=== PATIENT | male | born 1970 | race Caucasian/White ===

== ENCOUNTER 2020-01-21 14:27 | Emergency (ER) | payer OTHER, SELFPAY ==
--- NOTE | ~2020-01-21 | XR_ITS ---
EXAMINATION: XR chest 2V EXAM DATE: 01/21/2020 15:10 INDICATION: Cough, left lower diminished breath sounds. TECHNIQUE: Frontal and lateral projections of the chest obtained and reviewed. Comparison is made to prior examination from 04/10/2014. FINDINGS: There is patchy left basilar posterior subsegmental airspace disease, atelectasis and/or p neumonia. This is new compared to prior study. The lungs are otherwise clear. There are no pleural e ffusions. The cardiomediastinal silhouette is within normal limits. There is no pneumothorax suspec luis. The bones and soft tissues are unremarkable. IMPRESSION: Patchy left basilar segmental atelectasis and/or pneumonia. Reviewed, dictated and finalized at location A.
[2020-01-21 14:34] VITALS: BP 160/73; PULSE 92; RESP 20; TEMP 36.8; O2SAT 94
--- NOTE | 2020-01-21 15:04 | ED.URI ---
HPI - URI/Sore Throat General Chief Complaint: Upper Respiratory Infection Stated Complaint: FEVER Time Seen by Provider: 01/21/20 14:56 Source: patient and RN notes reviewed Mode of arrival: ambulatory Limitations: no limitations History of Present Illness HPI Narrative: The patient presents today complaining of nausea, vomiting, body aches, mild cough, intermittent shortness of breath. Denies congestion, rhinorrhea, sore throat, fever. Patient smokes 1 pack/day x 40 years. He has not tried any medication at home prior to arrival. MD elicited complaint: other (Nausea, vomiting, cough) Related Data Allergies Allergy/AdvReac Type Severity Reaction Status Date / Time No Known Allergies Allergy Unknown Verified 01/21/20 14:40 Review of Systems Review of Systems: Narrative: CONSTITUTIONAL: Denies body aches, fever, chills, or sweats. Body aches, fatigue EYES: Denies visual changes, redness, or discharge. ENT: Denies rhinorrhea, congestion, sore throat, or otalgia. CARDIOVASCULAR: Denies chest pain, palpitations, or edema. RESPIRATORY: + Cough. Intermittent shortness of breath GASTROINTESTINAL: Denies abdominal pain, or diarrhea.+ Nausea and vomiting GENITOURINARY: Denies dysuria or hematuria. SKIN: Denies rash, itching, or wounds. MUSCULOSKELETAL: Denies back pain, joint pain, or myalgia. NEUROLOGIC: Denies headache, numbness, tingling, or weakness. PSYCH: Denies depression or anxiety. PMFSH Comments At time of signature, I have reviewed and agree with nursing past medical, surgical, social and family history unless otherwise noted. Please see nursing chart for further information. There is no relevant family history pertinent to the presenting complaint Exam Narrative: Exam Narrative: GENERAL: Well-appearing, well-nourished, and in no acute distress. HEAD: Normocephalic, atraumatic. EYES: EOMI. No redness or drainage. Conjunctivae normal. ENT: Mucous membranes pink and moist. Nares clear. No rhinorrhea. TMs normal bilaterally. Throat normal. Uvula midline. NECK: Normal AROM. Supple. No lymphadenopathy. CHEST: No respiratory distress. Diminished with crackles in the left lower lobe. Wheezing in the right upper lobe. HEART: Regular rate and rhythm. No murmur appreciated. Normal peripheral pulses. EXTREMITIES: Normal range of motion. No edema. SKIN: Warm, dry, no rash. NEURO: No focal deficits. Alert and oriented x3. Gait steady. PSYCH: Normal affect. No signs of depression or anxiety. Course Vital Signs Vital signs: Vital Signs Temperature 98.2 F 01/21/20 14:34 Pulse Rate 92 01/21/20 14:34 Respiratory Rate 20 01/21/20 14:34 Blood Pressure 160/73 H 01/21/20 14:34 Pulse Oximetry 94 01/21/20 14:34 Temperature 98.2 F 01/21/20 14:34 Pulse Rate 92 01/21/20 14:34 Respiratory Rate 20 01/21/20 14:34 Blood Pressure 160/73 H 01/21/20 14:34 Pulse Oximetry 94 01/21/20 14:34 Reviewed. Pt has been instructed to follow up with his PCP regarding his elevated blood pressure today. MDM - URI/Sore Throat Differential Diagnosis Differential diagnosis: Likely upper respiratory infection, viral infection, bronchitis, influenza and other (Pneumonia) Lab Data Attestation: I reviewed the patient's lab results. Labs: Influenza A Screen Positive Reference Range: Negative Influenza B Screen Negative Reference Range: Negative Imaging Data Radiologist's impression: ITS Impressions Chest X-Ray 01/21/20 15:12 IMPRESSION: Patchy left basilar segmental atelectasis and/or pneumonia. Critical Care Time Critical Care Time Critical Care Time: No Discharge Plan Discharge Clinical Impression: Influenza A Pneumonia Qualifiers: Pneumonia type: due to unspecified organism Laterality: left Lung location: lower lobe of lung Qualified Code(s): J18.9 - Pneumonia, unspecified organism Patient Disposition: Home, Self-Care Condition
[2020-01-21] MEDS: IPRATROPIUM BR 0.02% INH SOLN 0.5 MG/2.5 ML VIAL INHALATION (15:11)
[2020-01-21] MEDS: ALBUTEROL SULFATE NEB 2.5 MG/3 ML INH INHALATION (15:12)
--- NOTE | 2020-01-21 15:29 | PC.NURSE ---
aerosol tx. tolerated well p.o. 92 %
== END 2020-01-21 15:46 | disposition home or self-care (01) ==
PROVIDERS: Emergency Provider Nurse Practitioner
DX: J10.1 Influenza due to other identified influenza virus with other respiratory manifestations (principal); J18.9 Pneumonia, unspecified organism
CPT/HCPCS: 71046; 87804; 99203; G0463

== ENCOUNTER 2020-12-01 12:17 | Emergency (ER) | payer OTHER, SELFPAY ==
[2020-12-01 12:28] VITALS: BP 176/83; PULSE 71; RESP 18; TEMP 37.2; O2SAT 99
--- NOTE | 2020-12-01 13:10 | PC.NURSE ---
patient sitting in chair in room. alert. oriented. waiting for further orders from provider.
--- NOTE | 2020-12-01 13:34 | ED.GENADULT ---
HPI - General Adult General Chief complaint: Extremity Injury, Lower Stated complaint: R foot problem Time Seen by Provider: 12/01/20 12:32 Source: patient Mode of arrival: ambulatory Limitations: no limitations History of Present Illness HPI narrative: Patient presents for evaluation of his fourth and fifth right toes stating that 2 years ago he stubbed them and since he has noticed intermittent tingling sensations and feels that his balance is off. Patient states that he has been referred to physical therapy for a while and now has been instructed to do physical therapy at home, but he is tired of dealing with it. Patient states that he has been discussed with his primary care however he feels that since he has been back to work he is being encouraged to walk more which makes him more noticeable that his gait is not even. Patient denies any recent trauma or injuries to the extremities. Related Data Allergies Allergy/AdvReac Type Severity Reaction Status Date / Time No Known Allergies Allergy Unknown Verified 02/14/20 06:52 Review of Systems Review of Systems: Narrative: CONSTITUTIONAL: Denies fever, chills, or sweats. EYES: Denies visual changes, redness, or discharge. ENT: Denies rhinorrhea, congestion, sore throat, or otalgia. CARDIOVASCULAR: Denies chest pain, palpitations, or edema. RESPIRATORY: Denies cough or dyspnea. GASTROINTESTINAL: Denies abdominal pain, nausea, vomiting, or diarrhea. GENITOURINARY: Denies dysuria or hematuria. SKIN: Denies rash or itching. MUSCULOSKELETAL: Tingling to right fourth and fifth digit denies back pain, joint pain, or myalgia. NEUROLOGIC: Denies headache, numbness, dizziness, or weakness. PSYCHIATRIC: Denies anxiety or depression. Exam Narrative: Exam Narrative: GENERAL: Well-appearing, well-nourished, and in no acute distress. HEAD: Normocephalic, atraumatic. EYES: PERRLA and EOMI. EXTREMITIES: Normal range of motion. No edema. No ecchymosis or erythema noted to right fourth or fifth digits. Patient states feet are dry and there is onychomycosis noted to nails. There is no signs of deformity or acute injury. Patient is able to weight-bear on the right foot. Patient is able to plantar and dorsiflex. SKIN: Warm, dry, no rash. NEURO: No focal deficits. Alert and oriented x3. Patient able to weight-bear and ambulate. PSYCH: Normal mood and affect. Course Vital Signs Vital signs: Vital Signs Temperature 98.9 F 12/01/20 12:28 Pulse Rate 71 12/01/20 12:28 Respiratory Rate 18 12/01/20 12:28 Blood Pressure 176/83 H 12/01/20 12:28 Pulse Oximetry 99 12/01/20 12:28 Temperature 98.9 F 12/01/20 12:28 Pulse Rate 71 12/01/20 12:28 Respiratory Rate 18 12/01/20 12:28 Blood Pressure 176/83 H 12/01/20 12:28 Pulse Oximetry 99 12/01/20 12:28 Medical Decision Making MDM Narrative Medical decision making narrative: Discussed with patient that if he feels that he has any weight gain that he should talk to his primary care about physical therapy options. He is also concerned about tingling sensations perhaps like a discussed nerve conduction studies. Patient does not have any acute injuries that can be worked up in the emergency department. Patient is discharged home to follow-up with his primary care. Patient denies any systemic or other symptoms accompanying the intermittent tingling to his fourth and fifth metatarsals. Differential Diagnosis Differential Diagnosis: Fracture, sprain, strain Vital Signs Vital Signs: Vital Signs Temperature 98.9 F 12/01/20 12:28 Pulse Rate 71 12/01/20 12:28 Respiratory Rate 18 12/01/20 12:28 Blood Pressure 176/83 H 12/01/20 12:28 Pulse Oximetry 99 12/01/20 12:28 Temperature 98.9 F 12/01/20 12:28 Pulse Rate 71 12/01/20 12:28 Respiratory Rate 18 12/01/20 12:28 Blood Pressure 176/83 H 12/01/20 12:28 Pulse Oximetry 99 12/01/20 12:28 Discharge Plan Discharge Clinical Impression: Toe anom
== END 2020-12-01 13:51 | disposition home or self-care (01) ==
PROVIDERS: Emergency Provider Emergency Medicine; PCP Internal Medicine
DX: R20.2 Paresthesia of skin (principal)
CPT/HCPCS: 99282

== ENCOUNTER 2021-04-29 09:51 | Outpatient (CLI) | payer OTHER, SELFPAY ==
--- NOTE | 2021-04-29 11:00 | NEURO_ITS ---
Impression: # Known diabetic complains of right foot numbness and inability to dorsiflex toes. # Neuropathy involving right lower extremity; motor and sensory nerves. # Abnormal needle/EMG exam. Nerve Conduction Studies Anti Sensory Summary Table Stim Site NR Peak (ms) P-T Amp (?V) Site1 Site2 Delta-P (ms) Dist (cm) Ethan (m/s) Right Sup Fibular Anti Sensory (Ant Lat Mall) NO RESPONSE 14 cm NR 14 cm Ant Lat Mall 16.0 Right Sural Anti Sensory (Lat Mall) Calf 4.7 11.0 Calf Lat Mall 4.7 16.0 34 Motor Summary Table Stim Site NR Onset (ms) O-P Amp (mV) Site1 Site2 Delta-0 (ms) Dist (cm) Ethan (m/s) Right Peroneal Motor (Vastus Med) Ankle 4.8 0.7 Popit Ankle 14.1 40.0 28 Popit 18.9 0.5 Right Tibial Motor (Abd Prince Brev) Ankle 5.2 2.4 Knee Ankle 13.9 44.0 32 Knee 19.1 0.5 F Wave Studies NR F-Lat (ms) L-R F-Lat (ms) Right Peroneal (Mrkrs) (EDB) NO RESPONSE NR Right Tibial (Mrkrs) (Abd Hallucis) 58.77 EMG Side Muscle Nerve Root Ins Act Fibs Amp Dur Recrt Comment Right AntTibialis Dp Br Fibular L4-5 Nml Nml Nml Nml Reduced Right Gastroc Tibial S1-2 Nml Nml Nml Nml Reduced Right Fibularis Long Sup Br Fibular L5-S1 Nml Nml Nml Nml Reduced Right Flex Dig Long Tibial L5-S2 Nml Nml Nml Nml Reduced Right Ext Dig Brev Dp Br Fibular L5, S1 Nml Nml Decr >12ms Reduced MTDD
== END 2021-04-29 09:52 | disposition home or self-care (01) ==
LOC: ANHNEURO 09:52
PROVIDERS: PCP Internal Medicine; Visit Provider Internal Medicine
DX: G57.91 Unspecified mononeuropathy of right lower limb (principal)
CPT/HCPCS: 95886; 95908

== ENCOUNTER 2024-05-26 15:56 | Emergency (ER) | payer OTHER, SELFPAY ==
--- NOTE | ~2024-05-26 | CT_ITS ---
CT head without contrast Indication: Altered mental status Technique: Serial scans were obtained through the brain without the administration of contrast. Dose reduction technique was used on this scan by utilizing automated exposure control and iterative recon struction technique. The dose-length product (DLP) was 756.67 mGy-cm. Findings: There is no evidence of intracranial hemorrhage, mass lesion, or acute infarct. The ventri cles and subarachnoid spaces are unremarkable. Low attenuation regions are seen within the periventr icular white matter bilaterally, likely representing changes from chronic microvascular ischemic dise ase. There is no evidence of edema, mass effect or midline shift. The visualized paranasal sinuses and mastoid air cells are clear. Impression: No intracranial hemorrhage, mass, or acute infarct. Mild chronic white matter changes, as above. Reviewed, dictated and finalized at location . Impression: No intracranial hemorrhage, mass, or acute infarct. Mild chronic white matter changes, as above.
--- NOTE | ~2024-05-26 | XR_ITS ---
Portable chest x-ray Comparison: 01/21/2020 Clinical History: Altered mental status Findings: Lungs are clear, without focal consolidation or pleural effusion. Cardiomediastinal silho uette is stable. Bones and soft tissues are unremarkable. Impression: Clear lungs. Reviewed, dictated and finalized at location . Impression: Clear lungs.
[2024-05-26 15:57] VITALS: BP 133/80; PULSE 76; RESP 17; TEMP 36.7; O2SAT 98
--- NOTE | 2024-05-26 16:12 | ECG_ITS ---
Test Date: 2024-05-26 16:44:49 Measurements Intervals [place] Rate: 70 P: -2 MS: 192 QRS: 3 QRSD: 118 T: 33 QT: 405 QTc: 439 Interpretive Statements SINUS RHYTHM INTRAVENTRICULAR CONDUCTION DELAY BASELINE ARTIFACT- II, III, AVR, AVL, AVF, V1-V6 BORDERLINE ECG No previous ECG available for comparison Electronically Signed On 05-27-2024 08:22:44 CDT by Nelson Carpenter D.O.
--- NOTE | 2024-05-26 16:13 | ED.AMS ---
HPI - Altered Mental Status General Chief Complaint: Altered Mental Status Stated Complaint: slightly unresponsive Time Seen by Provider: 05/26/24 16:06 History of Present Illness HPI narrative: 54-year-old male presents to the emergency department via EMS for altered mental status. Patient was found by a friend in his vehicle unresponsive. Apparently the patient is sitting in his car with the door open and his feet sticking out of the car for 2 hours. He passed out while outside. EMS was contacted upon their arrival patient's temperature was 104? and his glucose was 500. He has a history of CVA, hypertension and DM. Patient was cooled by EMS his temperature was 100? glucose was 309 after fluids. He was given Narcan because he admitted to EMS that he had these final a few days ago, however the Narcan did not improve his mental status. On arrival to the ED his temp was 98.1? and the patient was alert to person and place. He denies use of alcohol or drugs. Denies any complaints at this time including chest pain or shortness of breath, vision changes or focal numbness or weakness. Related Data Allergies Allergy/AdvReac Type Severity Reaction Status Date / Time No Known Allergies Allergy Unknown Verified 05/26/24 16:12 Review of Systems Review of Systems: All systems reviewed & are unremarkable except as noted in HPI and below Exam Narrative: GENERAL: Well-appearing, well-nourished, and in no acute distress. poor hygiene. GCS 15 HEAD: Normocephalic, atraumatic. EYES: PERRLA and EOMI. ENT: Nares clear, no rhinorrhea or epistaxis. Mucous membranes dry NECK: Supple. CHEST: Clear to auscultation. No respiratory distress. HEART: Regular rate and rhythm. No murmur heard. Normal peripheral pulses. ABDOMEN: Soft, nontender, nondistended, normal active bowel sounds. EXTREMITIES: Normal range of motion. No edema. SKIN: Warm, dry, no rash. NEURO: No focal deficits. Alert and oriented x2 . Moving all extremities spontaneously Course Vital Signs Vital signs: Vital Signs Temperature 98.1 F 05/26/24 15:57 Pulse Rate 76 05/26/24 15:57 Respiratory Rate 17 05/26/24 15:57 Blood Pressure 133/80 05/26/24 15:57 Pulse Oximetry 98 05/26/24 15:57 Oxygen Delivery Nasal Cannula 05/26/24 15:57 Oxygen Flow Rate 2 05/26/24 15:57 Temperature 98.1 F 05/26/24 18:35 Pulse Rate 86 05/26/24 20:01 Respiratory Rate 28 H 05/26/24 20:01 Blood Pressure 136/109 H 05/26/24 20:01 Pulse Oximetry 100 05/26/24 20:01 Oxygen Delivery Nasal Cannula 05/26/24 17:10 Oxygen Flow Rate 2 05/26/24 17:10 MDM - Altered Mental Status MDM Narrative Medical decision making narrative: 54-year-old male with a history of CVA, DM, hypertension presents to the emergency department via EMS for altered mental status after being found sitting in his vehicle outside. The vehicle was off. Patient was found to be febrile at 104 by EMS, glucose was 500. He was given IV fluids and cold. Upon arrival to ED he is A&O x2, moving all extremities. No evidence of trauma. GCS 15. Airway protocted. He has no complaints. His vitals are stable, temp here is 98.1. Will obtain AMS workup, symptoms consistent with heat stroke. CBC without leukocytosis. Hemoglobin low at 12.4, normal MCV, no prior for comparison. Chemistries with a sodium of 131 calcium of 8.1. CK 243. TSH normal. Bicarb normal, no anion gap. Beta hydroxybutyrate is normal at 0.04. UA with glucosuria and elevated specific gravity, no UTI. UDS and ETOH are unremarkable. COVID and flu are negative. Chest x-ray shows no acute cardiopulmonary abnormality. Lactic acid normal at 1.5. Lactic acid normal 1.5. EKG with poor baseline, sinus rhythm, normal SC interval, normal QRS duration, normal QTC, no ischemic changes. CT brain shows no intracranial hemorrhage, mass or acute infarct. Workup discussed with patient and family at bedside. He received 3 L of IV fluid
[2024-05-26 16:14] LABS: Glucose Point of Care 444 mg/dl (65-105)
[2024-05-26 16:41] LABS: Alveolar/Arterial O2 Gradient 25.9 mmHg; Fractional Inspired Oxygen 24 %; HCO3 ABG 21.3 mEq/l (22.0-26.0); Oxygen Content ABG 17.9 %vol (16.0-22.0); Oxygen Saturation ABG 97.2 % (95.0-100.0); Oxyhemoglobin 96.7 % THb (90.0-100.0); PCO2 ABG 39.7 mmHg (35.0-45.0); PO2 FiO2 Ratio Arterial Blood 4.08 %; Total Hemoglobin 13.1 g/dL (12.0-18.0); pH ABG 7.348 (7.350-7.450)
[2024-05-26 16:45] LABS: Modified Allen's Test Pass; Site Drawn RIGHT RADIAL
[2024-05-26 16:46] LABS: Device NASAL CANNULA
[2024-05-26 17:04] LABS: Basophils Absolute Auto 0.1 K/mm3 (0.0-0.1); Basophils Percent Auto 0.6 % (0.2-1.2); Eosinophils Absolute Auto 0.1 K/mm3 (0-0.3); Eosinophils Percent Auto 0.8 % (0-4.4); Hematocrit 36.1 % (42.0-52.0); Hemoglobin 12.4 g/dL (14.0-18.0); Immature Granulocyte Absolute 0.04 K/mm3 (0.00-0.031); Immature Granulocyte Percent A 0.5 % (0-0.5); Lymphocytes Absolute Auto 1.07 K/mm3 (0.9-3.2); Lymphocytes Percent Auto 12.4 % (18.3-44.2); Mean Corpuscular HGB Conc 34.3 g/dl (32-36); Mean Corpuscular Hemoglobin 29.1 pg (26-34); Mean Corpuscular Volume 84.7 fl (80-100); Mean Platelet Volume 9.6 fl (7.4-10.4); Monocytes Absolute Auto 0.5 K/mm3 (0.1-0.6); Monocytes Percent Auto 5.3 % (2.6-8.5); Neutrophils Percent Auto 80.4 % (45.5-73.1); Platelet Count Result 233 k/mm3 (150-375); Red Blood Count 4.26 M/mm3 (4.6-6.20); Red Cell Distribution Width 12.3 % (11.5-14.5); White Blood Count 8.6 K/mm3 (4.5-10.0)
[2024-05-26 17:10] VITALS: O2SAT 98
[2024-05-26 17:15] LABS: Alanine Aminotransferase 12 U/L (6-50); Albumin Level 3.8 g/dL (3.5-5.1); Alkaline Phosphatase 103 U/L (38-126); Anion Gap 9 mmol/L (4-12); Aspartate Amino Transferase 19 U/L (17-59); Bilirubin,Total 0.4 mg/dL (0.2-1.3); Blood Urea Nitrogen 11 mg/dL (9-20); Calcium 8.1 mg/dL (8.4-10.2); Carbon Dioxide 24 mmol/L (22-30); Chloride 98 mmol/L (98-107); Creatine Kinase 243 U/L (55-170); Estimated CRCL calculation 130 ml/min; Estimated Glomerular Filt Rate > 60; Glucose 416 mg/dL (65-110); INR 1.2; Potassium 4.4 mmol/L (3.4-5.0); Sodium 131 mmol/L (137-145)
[2024-05-26 17:16] LABS: Lactic Acid Reflex 2.1 mmol/L (0.7-2.0); Partial Thromboplastin Time 29.8 Seconds (22.3-36.8)
[2024-05-26 17:17] LABS: Acetaminophen < 10 ug/mL (10-30); Ammonia 11 umol/L (9-30); Ethanol < 10 mg/dL (<10); Salicylate < 1.0 mg/dL (2-20)
[2024-05-26 17:27] LABS: Troponin I < 0.012 ng/mL (0.000-0.034)
[2024-05-26 17:46] LABS: Thyroid Stimulating Hormone 0.828 uIU/mL (0.465-4.680)
[2024-05-26 17:48] LABS: Beta-Hydroxybutyrate/Acetoacetate 0.04 mmol/L (0.02-0.27)
[2024-05-26] MEDS: SODIUM CHLORIDE 0.9% IV 1,000 ML 999 ML IV CONT ×3 (18:09→20:15)
[2024-05-26 18:14] LABS: Influenza A QL RT-PCR Negative (Negative); Influenza B QL RT-PCR Negative (Negative); SARS-CoV-2 RNA PCR Negative (Negative)
[2024-05-26 18:23] VITALS: PULSE 62; RESP 13; O2SAT 100
[2024-05-26 18:35] VITALS: BP 109/63; PULSE 63; RESP 16; TEMP 36.7; O2SAT 99
[2024-05-26 20:01] VITALS: BP 136/109; PULSE 86; RESP 28; O2SAT 100
[2024-05-26 20:02] LABS: Reflex Lactic Acid Yes or No Add Lactic
[2024-05-26 20:26] LABS: Appearance Urine Clear (Clear); Bilirubin Urine Negative (Negative); Blood Urine Negative (Negative); Color Urine Yellow (Yellow); Glucose Urine UA 3+ mg/dL (Negative); Ketones Urine Negative (Negative); Leukocyte Esterase Ur Negative LEU/UL (Negative); Nitrate Urine Negative (Negative); Protein Urine Negative (Negative); Specific Grav Ur 1.039 (1.001-1.035); Urobilinogen Urine 0.2 mg/dL (<2.0); pH Urine 5.5 (5.0-9.0)
[2024-05-26 20:42] LABS: Lactic Acid 1.5 mmol/L (0.7-2.0)
[2024-05-26 20:43] LABS: Amphetamine Screen Urine Negative (Negative); Barbiturate Screen Urine Negative (Negative); Benzodiazepines Screen Urine Negative (Negative); Cannabinoid Screen Urine Negative (Negative); Cocaine Screen Urine Negative (Negative); Methadone Screen Urine Negative (Negative); Opiate Screen Urine Negative (Negative); Phencyclidine Screen Urine Negative (Negative)
[2024-05-26 20:52] LABS: Add Urine Microscopic? NO
== END 2024-05-26 21:45 | disposition home or self-care (01) ==
PROVIDERS: Emergency Provider Physician Assistant; PCP Internal Medicine
DX: R41.82 Altered mental status, unspecified (principal); E86.0 Dehydration; Z11.52 Encounter for screening for COVID-19; I10 Essential (primary) hypertension; E11.9 Type 2 diabetes mellitus without complications; Z86.73 Personal history of transient ischemic attack (TIA), and cerebral infarction without residual deficits
CPT/HCPCS: 36415; 36600; 70450; 71045; 80053; 80307; 81003; 82010; 82140; 82550; 82805; 82948; 83605; 84443; 84484; 85025; 85610; 85730; 87636; 93005; 96360; 96361; 99284; J7030

== ENCOUNTER 2024-07-31 10:04 | Emergency (ER) | payer MEDICARE, MEDICAID, SELFPAY ==
[2024-07-31] VITALS (7 sets, daily range): BP systolic 136–163; BP diastolic 87–99; PULSE 87–110; RESP 14–20; TEMP 36.6; O2SAT 97–100
--- NOTE | ~2024-07-31 | XR_ITS ---
EXAMINATION: XR chest 2V DATE: 07/31/2024 10:37 INDICATION: Palpitations. Chest pain. TECHNIQUE: Frontal and lateral views of the chest were obtained. COMPARISON: Chest single view 05/26/2024 FINDINGS: There is no pneumonia, pleural effusion, or pneumothorax. The heart size is normal. There i s an old healed right rib fracture. IMPRESSION: 1. No acute cardiopulmonary disease. Reviewed, dictated and finalized at location A.
--- NOTE | 2024-07-31 10:11 | ECG_ITS ---
Test Date: 2024-07-31 10:08:57 Measurements Intervals [place] Rate: 109 P: 21 WA: 170 QRS: 8 QRSD: 97 T: 19 QT: 355 QTc: 478 Interpretive Statements SINUS TACHYCARDIA DELAYED PRECORDIAL R/S TRANSITION BASELINE ARTIFACT- I, III, AVL, AVF, V2 ABNORMAL ECG Compared to ECG 05/26/2024 16:44:49 HEART RATE HAS INCREASED Electronically Signed On 07-31-2024 10:21:55 CDT by Nelson Carpenter D.O.
[2024-07-31 10:25] LABS: Basophils Percent Auto 0.5 % (0.2-1.2); Eosinophils Percent Auto 0.5 % (0-4.4); Hematocrit 39.5 % (42.0-52.0); Hemoglobin 13.6 g/dL (14.0-18.0); Immature Granulocyte Absolute 0.02 K/mm3 (0.00-0.031); Immature Granulocyte Percent A 0.3 % (0-0.5); Lymphocytes Absolute Auto 1.13 K/mm3 (0.9-3.2); Mean Corpuscular HGB Conc 34.4 g/dl (32-36); Mean Corpuscular Hemoglobin 28.9 pg (26-34); Mean Platelet Volume 9.2 fl (7.4-10.4); Monocytes Absolute Auto 0.4 K/mm3 (0.1-0.6); Monocytes Percent Auto 5.3 % (2.6-8.5); Neutrophils Absolute Auto 5.9 K/mm3 (1.3-6.7); Neutrophils Percent Auto 78.4 % (45.5-73.1); Platelet Count Result 262 k/mm3 (150-375); Red Cell Distribution Width 12.6 % (11.5-14.5); White Blood Count 7.5 K/mm3 (4.5-10.0)
[2024-07-31 10:36] LABS: INR 1.2; Partial Thromboplastin Time 27.7 Seconds (22.3-36.8); Prothrombin Time 15.1 Seconds (11.1-14.7)
[2024-07-31 10:37] LABS: Alanine Aminotransferase 13 U/L (6-50); Albumin Level 4.2 g/dL (3.5-5.1); Alkaline Phosphatase 130 U/L (38-126); Anion Gap 13 mmol/L (4-12); Aspartate Amino Transferase 21 U/L (17-59); Bilirubin,Total 0.9 mg/dL (0.2-1.3); Blood Urea Nitrogen 12 mg/dL (9-20); Calcium 8.6 mg/dL (8.4-10.2); Carbon Dioxide 22 mmol/L (22-30); Chloride 97 mmol/L (98-107); Estimated CRCL calculation 67 ml/min; Estimated Glomerular Filt Rate > 60; Glucose 411 mg/dL (65-110); Sodium 132 mmol/L (137-145)
[2024-07-31 10:49] LABS: NT Pro B Type Natriuretic Pept 333 pg/mL (19.9-100); Troponin I < 0.012 ng/mL (0.000-0.034)
--- NOTE | 2024-07-31 11:04 | ED.ARRPALP ---
HPI - Arrhythmia/Palpitations General Chief Complaint: Arrhythmia/Palpitations Stated Complaint: found down on sidewalk Time Seen by Provider: 07/31/24 10:05 History of Present Illness HPI narrative: Patient is a 54-year-old male who presents ER after being found down on inside wrong. Patient reports that it him doing some work in began feeling weak and lightheaded. EMS arrived and patient was in supraventricular tachycardia. They gave him adenosine in his heart rate came down. Patient is initially hypertensive but blood pressures normalized since his heart rate has improved. He denies chest pain. Reports he did feel his heart was racing. He did not take his morning medications. No fevers or chills or sweats. No history of arrhythmia. Related Data Allergies Allergy/AdvReac Type Severity Reaction Status Date / Time No Known Allergies Allergy Unknown Verified 05/26/24 16:12 Review of Systems Review of Systems: All systems reviewed & are unremarkable except as noted in HPI and below Constitutional: Constitutional: Reports no additional constitutional complaints ENT: Reports system reviewed and no additional complaints, except as documented Cardiovascular: Cardiovascular: Denies chest pain, Reports rapid heart rate and Denies radiating jaw, neck or arm pain Respiratory: Respiratory: Reports no additional respiratory complaints Gastrointestinal: Gastrointestinal: Reports no additional gastrointestinal complaints Neurologic: Reports system reviewed and no additional complaints, except as documented PMFSH Past Medical History Medical History (Updated 07/31/24 @ 13:06 by Alex Marino MD) Diabetes Hypertension Surgical History Surgical History (Updated 07/31/24 @ 13:03 by Alex Marino MD) No pertinent past surgical history Exam Narrative: GENERAL: Well-appearing, well-nourished, and in no acute distress. HEAD: Normocephalic, atraumatic. ENT: Mucous membranes moist. NECK: Supple. CHEST: Clear to auscultation. No respiratory distress. HEART: Tachycardic and regular. Normal peripheral pulses. ABDOMEN: Soft, nontender, nondistended. EXTREMITIES: Normal range of motion. No edema. SKIN: Warm, dry, no rash. NEURO: Alert and oriented x3. PSYCH: Normal mood and affect. Course Course Emergency Course: No additional arrhythmia since EMS converted patient. Discussed with Cardiology. Started on Lopressor 25 mg b.i.d. and f/u outpt. Patient reports not length medications day which would explain his elevated blood sugar. He has received 1 L IV fluid. Discharge home. Vital Signs Vital signs: Vital Signs Temperature 98 F 07/31/24 10:04 Pulse Rate 110 H 07/31/24 10:04 Respiratory Rate 14 07/31/24 10:04 Blood Pressure 136/87 07/31/24 10:04 Pulse Oximetry 100 07/31/24 10:04 Oxygen Delivery Room Air 07/31/24 10:04 Temperature 98 F 07/31/24 10:04 Pulse Rate 95 07/31/24 12:29 Respiratory Rate 17 07/31/24 12:29 Blood Pressure 150/99 H 07/31/24 12:29 Pulse Oximetry 100 07/31/24 12:29 Oxygen Delivery Room Air 07/31/24 10:04 MDM - Arrhythmia/Palpitations Lab Data 07/31/24 10:19 07/31/24 10:19 Labs: Lab Results 07/31/24 Range/Units 10:19 WBC 7.5 (4.5-10.0) K/mm3 RBC 4.70 (4.6-6.20) M/mm3 Hgb 13.6 L (14.0-18.0) g/dL Hct 39.5 L (42.0-52.0) % MCV 84.0 (80-100) fl MCH 28.9 (26-34) pg MCHC 34.4 (32-36) g/dl RDW 12.6 (11.5-14.5) % Plt Count 262 (150-375) k/mm3 MPV 9.2 (7.4-10.4) fl Immature Gran % (Auto) 0.3 (0-0.5) % Neut % (Auto) 78.4 H (45.5-73.1) % Lymph % (Auto) 15.0 L (18.3-44.2) % Heard % (Auto) 5.3 (2.6-8.5) % Eos % (Auto) 0.5 (0-4.4) % Baso % (Auto) 0.5 (0.2-1.2) % Lymph # (Auto) 1.13 (0.9-3.2) K/mm3 Heard # (Auto) 0.4 (0.1-0.6) K/mm3 Eos # (Auto) 0.0 (0-0.3) K/mm3 Baso # (Auto) 0.0 (0.0-0.1) K/mm3 Abs Immat Gran (auto) 0.02 (0.00-0.031) K/mm3
[2024-07-31] MEDS: METOPROLOL TARTRATE 25 MG TABLET PO (11:24)
--- NOTE | 2024-07-31 13:46 | PC.NURSE ---
Pt states calling family for ride home.
--- NOTE | 2024-07-31 14:08 | PC.NURSE ---
Care coordination at bedside to help with transportation.
== END 2024-07-31 14:24 | disposition home or self-care (01) ==
PROVIDERS: Emergency Provider Emergency Medicine; PCP Internal Medicine
DX: I47.10 Supraventricular tachycardia, unspecified (principal); E11.9 Type 2 diabetes mellitus without complications; I10 Essential (primary) hypertension
CPT/HCPCS: 36415; 71046; 80053; 83880; 84443; 84484; 85025; 85610; 85730; 93005; 99284; A9270